=== PATIENT | male | born 1990 | race Caucasian/White ===

== ENCOUNTER 2018-02-24 14:42 | Emergency (ER) | payer MEDICAID, OTHER ==
[~2018-02-24] VITALS: Ht 182.9 cm; Wt 100.0 kg
[~2018-02-24 14:42] MED LIST: AZIT250T PO; DICY10CA88 PO; IBUP-1984 PO; NO HOME MEDS; OMEP40CA PO; ZOF4T PO
[2018-02-24 14:44] VITALS: BP 145/77
[2018-02-24] MEDS ORDERED: ibuprofen tablet 400 MG TABLET PO ONE (15:00)
== END 2018-02-24 15:35 | disposition home or self-care (01) ==
LOC: ER 14:43
DX: S46.911A Strain of unspecified muscle, fascia and tendon at shoulder and upper arm level, right arm, initial encounter (principal); F17.200 Nicotine dependence, unspecified, uncomplicated; Z79.899 Other long term (current) drug therapy; X58.XXXA Exposure to other specified factors, initial encounter; Y93.89 Activity, other specified; Y92.89 Other specified places as the place of occurrence of the external cause; Y99.8 Other external cause status
CPT/HCPCS: 99282; A4565

== ENCOUNTER 2021-04-13 01:06 | Emergency (ER) | payer MEDICAID ==
[~2021-04-13] VITALS: Ht 182.9 cm; Wt 104.5 kg
[2021-04-13 01:28] VITALS: BP 156/95
[2021-04-13] MEDS ORDERED: ketorolac trometh. 30mg/ml inj. IM ONE (02:35)
[2021-04-13] MEDS ORDERED: HYDR-3972 PO (03:21)
== END 2021-04-13 04:24 | disposition home or self-care (01) ==
LOC: ER 01:07
DX: N43.3 Hydrocele, unspecified (principal); Z98.890 Other specified postprocedural states; Z79.899 Other long term (current) drug therapy
CPT/HCPCS: 36415; 87491; 87591; 96372; 99283; J1885; 99284

== ENCOUNTER 2021-12-29 13:50 | Emergency (ER) | payer MEDICAID ==
[~2021-12-29] VITALS: Ht 182.9 cm; Wt 78.6 kg
[2021-12-29 18:04] LABS: BASOPHILS # (AUTO) 0.1 X10'3 (0-0.2); EOSINOPHILS # (AUTO) 0.2 X10'3 (0-0.9); EOSINOPHILS % (AUTO) 1.5 % (0-6); HEMATOCRIT 46.7 % (42.0-52.0); HEMOGLOBIN 16.3 g/dl (14.0-17.9); LYMPHOCYTES # (AUTO) 3.6 X10'3 (1.1-4.8); LYMPHOCYTES % (AUTO) 30.2 % (21-51); MEAN CORPUSCULAR HEMOGLOBIN 31.3 PG (27.0-31.0); MEAN CORPUSCULAR HGB CONC 34.9 g/dL (33.0-36.5); MEAN CORPUSCULAR VOLUME 89.5 FL (78-98); MEAN PLATELET VOLUME 9.3 FL (7.4-10.4); MONOCYTES # (AUTO) 0.8 X10'3 (0-0.9); MONOCYTES % (AUTO) 6.6 % (2-12); NEUTROPHILS # (AUTO) 7.2 X10'3 (1.8-7.7); NEUTROPHILS % (AUTO) 60.7 % (42-75); PLATELET COUNT 265 X10'3 (140-440); RED BLOOD COUNT 5.21 X10'6 (4.70-6.10); RED CELL DISTRIBUTION WIDTH 13.1 % (11.5-14.5); WHITE BLOOD COUNT 11.9 X10'3 (4.5-11.0)
--- NOTE | 2021-12-29 18:15 | NUR ---
first contact with pt. reports bilat rib pain s/p trying to quit smoking. reports he has been using nicotine patches and also smoking. denies sob, cp.
[2021-12-29 18:19] LABS: ALANINE AMINOTRANSFERASE 49 U/L (12-78); ALBUMIN 4.2 G/DL (3.4-5.0); ALBUMIN/GLOBULIN RATIO 1.4 (1.1-1.5); ALKALINE PHOSPHATASE 67 IU/L (46-116); ANION GAP 10 (8-16); ASPARTATE AMINO TRANSFERASE 19 U/L (10-37); BILIRUBIN,TOTAL 0.4 MG/DL (0.1-1.0); BLOOD UREA NITROGEN 12 MG/DL (7-18); BUN/CREATININE RATIO 12.9 (5.4-32.0); CALCIUM 9.1 MG/DL (8.5-10.1); CHLORIDE 107 MMOL/L (99-107); CREATININE 0.93 MG/DL (0.60-1.10); GLUCOSE 86 MG/DL (70-104); POTASSIUM 3.7 MMOL/L (3.5-5.1); SODIUM 142 MMOL/L (135-145); TOTAL CARBON DIOXIDE 25.3 MMOL/L (24-32); TOTAL PROTEIN 7.3 G/DL (6.4-8.2); eGFR > 90 ML/MIN
[2021-12-29 18:21] LABS: D-DIMER < 0.19 MG/L FEU (0-0.50)
--- NOTE | 2021-12-29 18:34 | NUR ---
bedside report to MATEO Leon
[2021-12-29 18:46] VITALS: BP 120/80
== END 2021-12-29 18:58 | disposition home or self-care (01) ==
LOC: ER 13:50
DX: R07.89 Other chest pain (principal); F17.200 Nicotine dependence, unspecified, uncomplicated; Z79.2 Long term (current) use of antibiotics; Z79.899 Other long term (current) drug therapy
CPT/HCPCS: 36415; 71045; 80053; 85025; 85379; 99284

== ENCOUNTER 2022-06-03 02:25 | Emergency (ER) | payer MEDICAID ==
[~2022-06-03] VITALS: Ht 182.9 cm; Wt 83.2 kg
[2022-06-03 03:01] LABS: BASOPHILS # (AUTO) 0.1 X10'3 (0-0.2); BASOPHILS % (AUTO) 0.4 % (0-1); EOSINOPHILS # (AUTO) 0.2 X10'3 (0-0.9); EOSINOPHILS % (AUTO) 1.5 % (0-6); HEMATOCRIT 46.8 % (42.0-52.0); HEMOGLOBIN 16.2 g/dl (14.0-17.9); LYMPHOCYTES # (AUTO) 3.7 X10'3 (1.1-4.8); LYMPHOCYTES % (AUTO) 24.5 % (21-51); MEAN CORPUSCULAR HEMOGLOBIN 31.1 PG (27.0-31.0); MEAN CORPUSCULAR HGB CONC 34.7 g/dL (33.0-36.5); MEAN CORPUSCULAR VOLUME 89.6 FL (78-98); MEAN PLATELET VOLUME 8.8 FL (7.4-10.4); MONOCYTES # (AUTO) 1.1 X10'3 (0-0.9); MONOCYTES % (AUTO) 7.1 % (2-12); NEUTROPHILS # (AUTO) 10.1 X10'3 (1.8-7.7); NEUTROPHILS % (AUTO) 66.5 % (42-75); PLATELET COUNT 241 X10'3 (140-440); RED BLOOD COUNT 5.22 X10'6 (4.70-6.10); RED CELL DISTRIBUTION WIDTH 12.7 % (11.5-14.5); WHITE BLOOD COUNT 15.1 X10'3 (4.5-11.0)
[2022-06-03 03:15] LABS: ALANINE AMINOTRANSFERASE 49 U/L (12-78); ALBUMIN 4.3 G/DL (3.4-5.0); ALBUMIN/GLOBULIN RATIO 1.5 (1.1-1.5); ALKALINE PHOSPHATASE 59 IU/L (46-116); ANION GAP 8 (8-16); ASPARTATE AMINO TRANSFERASE 31 U/L (10-37); BILIRUBIN,TOTAL 0.7 MG/DL (0.1-1.0); BLOOD UREA NITROGEN 12 MG/DL (7-18); BUN/CREATININE RATIO 13.3 (5.4-32.0); CHLORIDE 106 MMOL/L (99-107); GLUCOSE 92 MG/DL (70-104); SODIUM 142 MMOL/L (135-145); TOTAL CARBON DIOXIDE 27.9 MMOL/L (24-32); TOTAL PROTEIN 7.2 G/DL (6.4-8.2); eGFR > 90 ML/MIN
[2022-06-03 03:24] LABS: POTASSIUM 3.9 MMOL/L (3.5-5.1)
[2022-06-03 05:58] LABS: URINE AMPHETAMINE SCREEN NEGATIVE (Neg); URINE BARBITUATE SCREEN NEGATIVE (Neg); URINE BENZODIAZEPINES SCREEN NEGATIVE (Neg); URINE CANNABINOID SCREEN NEGATIVE (Neg); URINE COCAINE SCREEN NEGATIVE (Neg); URINE METHADONE SCREEN NEGATIVE (Neg); URINE OPIATE SCREEN NEGATIVE (Neg); URINE PHENCYCLIDINE SCREEN NEGATIVE (Neg)
[2022-06-03 06:11] LABS: ETHANOL < 0.010 GM/DL (0.0-0.010); MAGNESIUM 1.9 MG/DL (1.5-2.4)
[2022-06-03] MEDS: mag hydrox/Alum hydrox/simeth 30ml oral suspension PO ONE (07:43)
[2022-06-03] MEDS: famotidine 20mg tablet PO ONE (07:43)
[2022-06-03 07:47] VITALS: BP 123/88
== END 2022-06-03 07:48 | disposition home or self-care (01) ==
LOC: ER 02:26
DX: R07.89 Other chest pain (principal); K29.70 Gastritis, unspecified, without bleeding; R10.13 Epigastric pain; F17.200 Nicotine dependence, unspecified, uncomplicated; Z98.890 Other specified postprocedural states; Z79.2 Long term (current) use of antibiotics; Z79.899 Other long term (current) drug therapy
CPT/HCPCS: 36415; 71045; 80053; 80305; 80320; 83735; 84484; 85025; 93005; 99285

== ENCOUNTER 2023-12-29 15:36 | Emergency (ER) | payer MEDICAID ==
[~2023-12-29] VITALS: Ht 182.9 cm; Wt 96.7 kg
[2023-12-29 15:38] VITALS: TEMP 98.2
[2023-12-29 16:10] LABS: BASOPHILS # (AUTO) 0.1 X10'3 (0-0.2); BASOPHILS % (AUTO) 0.9 % (0-1); EOSINOPHILS # (AUTO) 0.2 X10'3 (0-0.9); EOSINOPHILS % (AUTO) 1.3 % (0-6); HEMATOCRIT 47.3 % (42.0-52.0); HEMOGLOBIN 16.4 g/dl (14.0-17.9); LYMPHOCYTES # (AUTO) 4.8 X10'3 (1.1-4.8); LYMPHOCYTES % (AUTO) 30.4 % (21-51); MEAN CORPUSCULAR HEMOGLOBIN 31.4 PG (27.0-31.0); MEAN CORPUSCULAR HGB CONC 34.6 g/dL (33.0-36.5); MEAN CORPUSCULAR VOLUME 90.6 FL (78-98); MEAN PLATELET VOLUME 8.2 FL (7.4-10.4); MONOCYTES % (AUTO) 6.3 % (2-12); NEUTROPHILS # (AUTO) 9.7 X10'3 (1.8-7.7); NEUTROPHILS % (AUTO) 61.1 % (42-75); PLATELET COUNT 277 X10'3 (140-440); RED BLOOD COUNT 5.22 X10'6 (4.70-6.10); RED CELL DISTRIBUTION WIDTH 13.3 % (11.5-14.5); WHITE BLOOD COUNT 15.9 X10'3 (4.5-11.0)
[2023-12-29 16:27] LABS: ALBUMIN 4.4 G/DL (3.4-5.0); ANION GAP 9 (8-16); BLOOD UREA NITROGEN 8 MG/DL (7-18); BUN/CREATININE RATIO 8.1 (10.0-20.0); CHLORIDE 104 MMOL/L (99-107); CREATININE 0.99 MG/DL (0.60-1.10); GLUCOSE 99 MG/DL (70-104); PRO BRAIN NATRIURETIC PEPTIDE 30 PG/ML (0-125); SODIUM 139 MMOL/L (135-145); TOTAL CARBON DIOXIDE 26.2 MMOL/L (24-32); eCRCL 115 ML/MIN; eGFR 87 ML/MIN
[2023-12-29 16:35] LABS: POTASSIUM 2.9 MMOL/L (3.5-5.1)
[2023-12-29] MEDS ORDERED: POTA-207 PO (17:17)
[2023-12-29 17:58] VITALS: BP 133/84; PULSE 79; RESP 16; O2SAT 100
[2023-12-29] MEDS: potassium Cl 20 mEq SR tablet PO STA (17:58)
== END 2023-12-29 18:31 | disposition home or self-care (01) ==
LOC: ER 15:39
DX: R00.2 Palpitations (principal); E87.6 Hypokalemia; Z79.1 Long term (current) use of non-steroidal anti-inflammatories (NSAID); Z79.2 Long term (current) use of antibiotics; Z79.899 Other long term (current) drug therapy
CPT/HCPCS: 36415; 71045; 80048; 83880; 84484; 85025; 93005; 99285

== ENCOUNTER 2024-06-18 21:36 | Emergency (ER) | payer MEDICAID ==
[~2024-06-18] VITALS: Ht 182.9 cm; Wt 80.0 kg
[2024-06-18 22:32] LABS: BASOPHILS # (AUTO) 0.2 X10'3 (0-0.2); BASOPHILS % (AUTO) 1.4 % (0-1); EOSINOPHILS # (AUTO) 0.2 X10'3 (0-0.9); EOSINOPHILS % (AUTO) 1.9 % (0-6); HEMATOCRIT 45.3 % (42.0-52.0); HEMOGLOBIN 15.8 g/dl (14.0-17.9); LYMPHOCYTES # (AUTO) 4.6 X10'3 (1.1-4.8); LYMPHOCYTES % (AUTO) 38.2 % (21-51); MEAN CORPUSCULAR HEMOGLOBIN 31.5 PG (27.0-31.0); MEAN CORPUSCULAR HGB CONC 34.9 g/dL (33.0-36.5); MEAN CORPUSCULAR VOLUME 90.3 FL (78-98); MEAN PLATELET VOLUME 8.9 FL (7.4-10.4); MONOCYTES % (AUTO) 7.8 % (2-12); NEUTROPHILS # (AUTO) 6.1 X10'3 (1.8-7.7); NEUTROPHILS % (AUTO) 50.7 % (42-75); PLATELET COUNT 227 X10'3 (140-440); RED BLOOD COUNT 5.01 X10'6 (4.70-6.10); RED CELL DISTRIBUTION WIDTH 12.9 % (11.5-14.5); WHITE BLOOD COUNT 12.1 X10'3 (4.5-11.0)
[2024-06-18 22:51] LABS: ALBUMIN 4.1 G/DL (3.4-5.0); ANION GAP 12 (8-16); BLOOD UREA NITROGEN 11 MG/DL (7-18); CALCIUM 9.1 MG/DL (8.5-10.1); CHLORIDE 106 MMOL/L (99-107); CREATININE 0.92 MG/DL (0.60-1.10); GLUCOSE 97 MG/DL (70-104); MAGNESIUM 1.9 MG/DL (1.5-2.4); PHOSPHORUS 3.2 MG/DL (2.3-4.5); POTASSIUM 3.9 MMOL/L (3.5-5.1); SODIUM 143 MMOL/L (135-145); TOTAL CARBON DIOXIDE 25.5 MMOL/L (24-32); eCRCL 124 ML/MIN; eGFR > 90 ML/MIN
--- NOTE | 2024-06-19 03:13 | NUR ---
CALLED [facility] FOR A FOLLOW UP ON PATIENT'S TRANSFER , THEY STATED THAT WOULD HAVE TO DECLINE AT THIS DO TO NO STAFF AND NO BEDS NEED TO CALL BACK IN THE AM.
[2024-06-19] MEDS: LORazepam 2 mg/ml vial IV ONE (05:52)
[2024-06-19 06:41] LABS: C-REACTIVE PROTEIN 0.07 MG/DL (0.0-0.5); CREATINE KINASE 50 U/L (39-308)
[2024-06-19 07:17] VITALS: O2SAT 99
--- NOTE | 2024-06-19 07:36 | NUR ---
RECEIVED CALL FROM [facility] REGARDING CLINICAL REVIEW FROM NURSE, NURSE NOTIFIED
--- NOTE | 2024-06-19 07:49 | NUR ---
[facility] ( Jose Juan) REPORT GIVEN AND SHE STATES SHE IS WORKING ON GETTING THIS PT A BED ON TELE/NEURO FOR CONTINUITY OF CARE AND WILL CALL BACK
--- NOTE | 2024-06-19 08:14 | NUR ---
[facility] CALLED ASKING TO SPEAK TO NURSE, NURSE NOTIFIED
--- NOTE | 2024-06-19 10:26 | NUR ---
CALLED [facility] PER DR. CANDELARIO TO SPEAK WITH DR. LINDA
--- NOTE | 2024-06-19 10:30 | NUR ---
Dr Chester at bedside for discussion with pt and SO
[2024-06-19] MEDS ORDERED: DIAZ5TAB PO (12:09)
[2024-06-19] MEDS: diazepam 5mg tablet PO ONE (12:22)
[2024-06-19 12:49] VITALS: BP 114/71; PULSE 47; RESP 16; TEMP 98.1
== END 2024-06-19 12:53 | disposition home or self-care (01) ==
LOC: ER 21:37
DX: M62.838 Other muscle spasm (principal); F17.200 Nicotine dependence, unspecified, uncomplicated; R53.1 Weakness; R19.7 Diarrhea, unspecified; R25.1 Tremor, unspecified; Z79.2 Long term (current) use of antibiotics; Z79.1 Long term (current) use of non-steroidal anti-inflammatories (NSAID)
CPT/HCPCS: 36415; 80048; 82550; 83735; 84100; 84145; 85025; 85651; 86140; 96374; 99285; J2060

== ENCOUNTER 2024-07-13 06:51 | Emergency (ER) | payer MEDICAID ==
[~2024-07-13] VITALS: Ht 182.9 cm; Wt 82.0 kg
[~2024-07-13 06:51] MED LIST changes: +DIAZ5TAB PO
[2024-07-13 06:52] VITALS: TEMP 97.7
[2024-07-13] MEDS: HYDROcodone/acetaminophen 5mg/325mg tablet PO ONE (07:34)
[2024-07-13 09:49] VITALS: BP 117/77; PULSE 61; RESP 16; O2SAT 99
[2024-07-13] MEDS ORDERED: HYDR-3973 PO (09:59)
== END 2024-07-13 10:10 | disposition home or self-care (01) ==
LOC: ER 06:52
DX: M54.2 Cervicalgia (principal); M54.12 Radiculopathy, cervical region; F17.200 Nicotine dependence, unspecified, uncomplicated; Z98.890 Other specified postprocedural states
CPT/HCPCS: 99283

== ENCOUNTER 2025-09-22 12:48 | Emergency (ER) | payer MEDICAID, OTHER ==
[~2025-09-22] VITALS: Ht 182.9 cm; Wt 87.3 kg
--- NOTE | 2025-09-22 13:50 | Physician Documentation ---
History of Present Illness ~ Chief Complaint: Allergic Reaction Stated Complaint: ALLERGIC REACTION Time Seen by MD: 13:29 OK to notify your PCP?: Yes Primary Medical Doctor: Domingo Source: patient Mode of Arrival: POV Exam Limitations: no limitations HPI 35-year-old male with chief complaint allergic reaction to wheat. Apparently 2 hours ago he took a bite of a pizza which he thought was wheat free but then r ealized it had weed in it. He reports some nausea no vomiting he also states he felt tingling in his chest as well as itchy and some tingling in his face. He states when he had the allergy testing done he was told it was a level to allergy and that he would not need any epinephrine or any medication for this he just needed to avoid wheat. He has never had an anaphylactic reaction before. He denies difficulty swallowing, shortness of breath, chest pain, lightheadedness. Medication Reconciliation Allergies: Coded Allergies: No Known Allergies (Unverified , 07/13/24) Scheduled Azithromycin (Zithromax), 1 DOSPAK PO UD Dicyclomine Hcl* (Bentyl*), 1 CAP PO TID Ibuprofen* (Motrin*), 800 MG PO TID Omeprazole (Prilosec), 1 CAP PO DAILY Ondansetron ODT* (Zofran ODT*), 4 MG PO Q8H Scheduled PRN Diazepam (Valium), 1 TAB PO Q8H PRN for muscle spasms Miscellaneous Medications Home Med List (No Home Medications), (Reported) Past Medical History Past Medical History: Headache Past Surgical History: orthopedic surgeries Alcohol Use: None Drug Use: none Lives with: Family Lives In: Home Occupation: employed Review of Systems All Other Systems at this time: Reviewed and Negative Physical Exam Vital Signs: Temperature: 98.1, Heart Rate: 79, Respiratory Rate: 16, BP: 129/77, Pulse Oximetry: 99, Weight: 87.270 Oxygen Flow Rate: 0 Physical Exam General Appearance: Alert, WD/WN. NAD. HEENT: NCAT, PERRL, EOMI. Posterior pharyngeal wall normal, no tongue swelling, no facial swelling Neck: Supple, trachea midline. No cervical lymphadenopathy Cardiovascular: RRR. No m/r/g. Lungs: CTAB. Breathing unlabored Extremities: Normal inspection. No edema. Skin: Warm/dry, normal color. No obvious rashes Neurological: Alert and oriented x4, normal gait. Psychiatric: Affect congruent with mood. Progress Results/Orders Results/Orders Vital Signs 09/22/25 13:17 Temp 98.1 Pulse 79 Resp 16 B/P (MAP) 129/77 Pulse Ox 99 O2 Flow Rate 0 Medical Decision Making Additional information obtaine: N/A Findings n/a Differential Dx:Considerations: Include: Anaphylaxis, Angioedema, Bronchospasm, Contact dermatitis, Drug reaction, Hypotension, Latex allergy, Renal failure, Respiratory failure, Shock, Urticaria, Other Differential Diagnosis Patient has no evidence of an anaphylactic reaction he consumed wheat over 2 hours ago now. We did give him a dosage of Benadryl here. Departure Time of Disposition: 13:49 Disposition: HOME / SELF CARE / HOMELESS Impression: Primary Impression: Acute allergic reaction Qualified Codes: T78.40XA - Allergy, unspecified, initial encounter Condition: Stable Discharge Instructions: Allergies, Adult, [id number] Additional Instructions: There was no evidence that this is an anaphylactic reaction your airway is clear in you are not short of breath. You can continue Benadryl every 4-6 hours if needed for rash or itching. Follow up with your primary care provider. Return to the ER if you do experience any symptoms of an anaphylactic reaction such as tongue swelling, facial swelling, shortness of breath, difficulty swallowing or any other urgent concerns. Referrals: NO PRIMARY CARE PROVIDER (PCP) Education Educated: Patient Educated regarding: diagnosis, treatment, need for follow up Signature Scribe Signature: x Attestation: KYLE Covarrubias Sep 22, 2025 13:50
[2025-09-22 14:43] VITALS: BP 120/80; PULSE 63; RESP 14; TEMP 97.4; O2SAT 99
== END 2025-09-22 14:53 | disposition home or self-care (01) ==
LOC: ER 12:49
DX: T78.40XA Allergy, unspecified, initial encounter (principal); X58.XXXA Exposure to other specified factors, initial encounter
CPT/HCPCS: 99283; Q0163